=== PATIENT | male | born 1975 | race Caucasian/White ===

== ENCOUNTER 2017-03-15 15:57 | Emergency (ER) | payer OTHER ==
--- NOTE | ~2017-03-15 | CR142 ---
[facility]. [facility] [place] A Service of [facility] & [facility] RADIOLOGY TEXT RESULTS PATIENT: AUDREY CONSTANTINO LOCATION: SED : [birth year] UNIT #: [id number] AGE: [address]: Ivan Holcomb SEX: M ORDER DR: [id number] [address] [address] [id number] E MR#: [id number] Acc #: [id number] NAME: AUDREY CONSTANTINO : 1975 SEX: M STUDY DATE/TIME: 03/15/2017 16:21 UNIT: SED ROOM: STUDY DESCRIPTION: CR Hand Min 3 Views Rt Attending Physician: Ivan Holcomb P.A.-C. Ordering Physician: Ivan Holcomb P.A.-C. Primary Care Physician: Primary Care Physician No MEDICAL IMAGING REPORT This report is preliminary unless electronic signature is present. EXAM Right hand, 3 views HISTORY Hand pain after fall today. Injury. FINDINGS Three views of the right hand demonstrate normal bone alignment. No fracture, joint space narrowing or dislocation. No opaque soft tissue foreign body. IMPRESSION Negative. Dictated by... Shaji Kimble M.D. THIS IS AN ELECTRONICALLY VERIFIED REPORT Shaji Kimble M.D. at 03/16/2017 11:29 PM DFL/psc TD: 03/16/2017 02:58 JOB #: [id number] MEDICAL IMAGING REPORT Page 1 of 1
--- NOTE | ~2017-03-15 | CR282 ---
[facility]. [facility] A Service Community [facility] RADIOLOGY TEXT RESULTS PATIENT: AUDREY CONSTANTINO LOCATION: SED : [birth year] UNIT #: [id number] AGE: [address]: Ivan Holcomb PAC SEX: M ORDER DR: [id number] [place] [id number] E MR#: [id number] Acc #: [id number] NAME: AUDREY CONSTANTINO : 1975 SEX: M STUDY DATE/TIME: 03/15/2017 16:21 UNIT: SED ROOM: STUDY DESCRIPTION: CR Wrist Min 3 View Rt Attending Physician: Ivan Holcomb P.A.-C. Ordering Physician: Ivan Holcomb P.A.-C. Primary Care Physician: Primary Care Physician No MEDICAL IMAGING REPORT This report is preliminary unless electronic signature is present. EXAM Right wrist 3 views HISTORY Right wrist pain after fall today. FINDINGS Wrist evaluation in multiple projections shows normal mineralization of the bony structures about the wrist and satisfactory articular relationship of the radius and ulna to the proximal carpal row and of the distal carpal segments to the metacarpal bases. There is no indication of fracture or dislocation, and no soft tissue radiopaque foreign body is present. No congenital defects are apparent. IMPRESSION Normal wrist. Dictated by... Shaji Kimble M.D. THIS IS AN ELECTRONICALLY VERIFIED REPORT Shaji Kimble M.D. at 03/16/2017 11:29 PM DFL/ayesha TD: 03/16/2017 02:58 JOB #: [id number] MEDICAL IMAGING REPORT [facility] A Service Community [facility] RADIOLOGY TEXT RESULTS PATIENT: AUDREY CONSTANTINO LOCATION: SED : [birth year] UNIT #: [id number] AGE: [address]: Ivan Holcomb PAC SEX: M ORDER DR: Page 1 of 1
[2017-03-15] MEDS ORDERED: PRINIVIL40 MG PO (16:02)
[2017-03-15] MEDS ORDERED: BENAZEPRIL HCL10 M1 PO (16:02)
[2017-03-15] MEDS ORDERED: PERCOCET10 PO (16:02)
[2017-03-15] MEDS ORDERED: IBUPROFEN800 MG PO (16:03)
[2017-03-15] MEDS ORDERED: NEXIUM (16:03)
== END 2017-03-15 17:33 | disposition home or self-care (01) ==
LOC: SED 15:57
DX: S60.221A Contusion of right hand, initial encounter (principal); K21.9 Gastro-esophageal reflux disease without esophagitis; I10 Essential (primary) hypertension; W20.8XXA Other cause of strike by thrown, projected or falling object, initial encounter; Y92.9 Unspecified place or not applicable; Z79.899 Other long term (current) drug therapy
CPT/HCPCS: 29260; 73110; 73130; 99283